=== PATIENT | male | born 1950 | race Caucasian/White ===

== ENCOUNTER 2017-12-07 14:49 | Emergency (ER) | payer MEDICARE, OTHER, SELFPAY ==
[2017-12-07 14:50] VITALS: BP 151/72; PULSE 52; RESP 18; TEMP 36.4; O2SAT 98; BMI 26.6
--- NOTE | 2017-12-07 15:12 | CT_ITS ---
STUDY: CT BRAIN WITHOUT CONTRAST REASON FOR EXAM: Male, 67 years old. Add injury following a fall. RADIATION DOSAGE (If Supplied By Facility): CTDIvol = ( 60.810 ) mGy, DLP = ( 1792.08 ) mGycm TECHNIQUE: Transaxial CT imaging of the brain was performed without administration of intravenous contrast material. Individualized dose optimization techniques were used for this CT. COMPARISON: None. FINDINGS: Normal soft tissue structures. Normal calvarium. There is mild cerebral atrophy with widening of the extra-axial spaces and ventricular dilatation. There are areas of decreased attenuation within the white matter tracts of the supratentorial brain, consistent with microvascular disease changes. Normal basal ganglia and thalami. Normal brainstem. There is mild cerebellar atrophy. There is no intracranial hemorrhage. There are no findings of an acute ischemic infarction. Atherosclerotic calcification of the cavernous portions of the internal carotid arteries bilaterally. Normal visualized paranasal sinuses. CT/Brain/Head without Contrast IMPRESSION: Chronic involutional changes of the brain. Electronically Signed: Darion Escudero MD at 16:01 EST Tel [phone], Service support ,
--- NOTE | 2017-12-07 15:18 | ED.VISSUMM ---
- ER Visit Summary Date of Service: 12/07/17 Chief Complaint: [] Head laceration History of Present Illness: The patient is a 67 M [] complaining of mechanical fall just prior to arrival resulting a laceration to the vertex of his scalp. Patient reports tripping on his grandchild's toy on the floor and striking his head into the [employer] [facility] center. Denies loss of consciousness. Denies blurred vision. Denies nausea/vomiting. Denies neck pain. No other complaints at this time. Physical Examination: [] Head is normocephalic with a 3 cm burst scalp laceration near the vertex that is full-thickness. Remainder of exam is unremarkable including no neck pain and round and reactive equal pupils. Test Results: [] CT head obtained and negative. Emergency Department Course and Treatment: [] The area cleaned with saline and Shur-Clens. Anesthetized locally 1% lidocaine. 5 misael were required to close the wound. There was some slight blood oozing, likely secondary to the 325 daily aspirin. This was resolved with direct pressure for several minutes. Wounds were cleaned. Finger wound was examined and did not require sutures. The patient was counseled to have the misael removed in 5 days. Treatment Plan: [] Follow-up with PCP for staple removal. Disposition: [] Discharge, stable. Impression: [] Head laceration, 3 cm Staple skin repair by ED physician This note was generated with CHORD dictation software. It may contain incorrect words, spelling, and punctuation that were not noted in review of the chart prior to signing ED Disposition - Plan for ED Patient: Chief Complaint: Head Injury Referrals: [facility] Doctor,Out of [Primary Care Provider] -
--- NOTE | 2017-12-07 16:28 | ED.DEP ---
ED Disposition - Plan for ED Patient: Disposition: Home or Assisted Living Chief Complaint: Head Injury Instructions: ED Laceration All Referrals: [facility] Doctor,Out of [Primary Care Provider] - Additional Instructions: Have misael taken out in 5 days.
== END 2017-12-07 16:50 | disposition home or self-care (01) ==
PROVIDERS: Emergency Provider Emergency Medicine
DX: S01.91XA Laceration without foreign body of unspecified part of head, initial encounter (principal); W18.09XA Striking against other object with subsequent fall, initial encounter; Y93.9 Activity, unspecified; Y92.9 Unspecified place or not applicable; Y99.9 Unspecified external cause status; I25.10 Atherosclerotic heart disease of native coronary artery without angina pectoris; I10 Essential (primary) hypertension; Z79.82 Long term (current) use of aspirin; Z79.899 Other long term (current) drug therapy
CPT/HCPCS: 12002; 70450; 99283